=== PATIENT | female | born 1995 | race Caucasian/White ===

== ENCOUNTER 2016-06-15 19:52 | Emergency (ER) | payer MEDICAID ==
[2016-06-15] MEDS ORDERED: SODIUM CHLORIDE 0.9% 1,000 ML ONE (21:03)
[2016-06-15] MEDS ORDERED: ONDANSETRON 4 MG VIAL ONE (21:03)
[2016-06-15] MEDS ORDERED: KCL CR 20 MEQ TAB PO ONE (22:49)
== END 2016-06-15 23:58 | disposition home or self-care (01) ==
LOC: ER 19:52
CPT/HCPCS: 36415; 76815; 80053; 81001; 83690; 84702; 85025; 87804; 96361